=== PATIENT | male | born 1930 | race Caucasian/White ===

== ENCOUNTER 2018-07-14 08:16 | Inpatient (IN) ==
--- NOTE | 2018-07-14 08:21 | PROVIDER DOCUMENTATION ---
HPI-Neurological Disorder - General Chief Complaint: Stroke-Like Symptoms Stated Complaint: LT SIDED WEAKNESS Time Seen by Provider: 07/14/18 08:20 Source: patient Allergies/Adverse Reactions: Patient Allergies Allergy/AdvReac Type Severity Reaction Status Date / Time Cephalosporins Allergy Unknown Verified 07/14/18 09:07 levetiracetam [From Keppra] Allergy Unknown Verified 07/14/18 09:07 meropenem [From Merrem] Allergy Unknown Verified 07/14/18 09:07 Penicillins Allergy HIVES Verified 07/14/18 09:07 Home Medications: Home Medication List Medication Instructions Recorded Confirmed Last Taken Type Aspirin 81 mg PO DAILY 04/05/18 07/14/18 Unknown History Famotidine 1 tab PO QHS 04/05/18 07/14/18 Unknown History Immune Glob,Meme Caprylate(IgG) 1 dose IV DIRECTED 04/05/18 07/14/18 Unknown History [Gamunex-C] Lacosamide [Vimpat] 1 tab PO BID 04/05/18 07/14/18 Unknown History Metoprolol Tartrate 1 tab PO BID 04/05/18 07/14/18 Unknown History Potassium Chloride 1 tab PO BID 04/05/18 07/14/18 Unknown History Simvastatin 1 tab PO QHS 04/05/18 07/14/18 Unknown History Apixaban [Eliquis] 2.5 mg PO BID 07/14/18 07/14/18 Unknown History Isosorbide Mononitrate E.r. [Imdur] 30 mg PO DAILY 07/14/18 07/14/18 Unknown History Meloxicam [Mobic] 15 mg PO QAM 07/14/18 07/14/18 Unknown History Testosterone Cypionate 200 mg IM DIRECTED 07/14/18 07/14/18 Unknown History Vit C/E/Zn/Coppr/Lutein/Zeaxan 1 each PO BID 07/14/18 07/14/18 Unknown History [Preservision Areds 2 Softgel] - History of Present Illness-Neuro Nature of Presenting Problem: HPI: Pt reports to ED by EMS for slurred speech and weakness / shaking. He has a PMH of seizures, HTN, CAD s/p CABG x 3, brain sx for brain infection ( Dr Lemons) . He states that he woke up this am shaking of his bilateral extremities , and CP, left sided, comes and goes, resolved now, 10/04, He lives non rad. No vomiting, but minor nausea. He denies any one sided weakness. He lives with his at [facility]. Onset/Duration: reports: this morning Timing: reports: improving Context: reports: impaired speech. denies: head injury, recent infection, paresthesia, facial droop, falling Character of Altered Mental Status: reports: trouble concentrating. denies: disoriented, confused, combative, agitated, unresponsive, seizure activity, decreased responsiveness Any recent trauma/injury?: reports: none Character of Deficits: denies: new weakness, altered sensation, vision problem/ glaucoma, impaired speech, impaired swallowing, decreased ability to stand, decreased ability to walk, falling New weakness or altered sensation location:: reports: none Cognitive Baseline: alert, oriented x3 Gait Baseline: walks without assistance Associated Symptoms: reports: short of breath, dizziness, chest pain, nausea, slurred speech. denies: loss of consciousness, numbness in legs/feet, paresthesia, vomiting Similar Symptoms Previously?: Yes Recently seen or treated by another doctor?: Yes Review of Systems - Adult - REVIEW OF SYSTEMS - ADULT Constitutional: reports: no symptoms reported Eyes: reports: no symptoms reported Ears, Nose, Mouth & Throat: reports: no symptoms reported Cardiovascular: reports: see HPI Respiratory: reports: see HPI Gastrointestinal: reports: no symptoms reported Genitourinary: reports: no symptoms reported Musculoskeletal: reports: no symptoms reported Integumentary: reports: no symptoms reported Neurological: reports: no symptoms reported Psychiatric: reports: no symptoms reported Endocrine: reports: no symptoms reported Hematologic/Lymphatic: reports: no symptoms reported Allergic/Immunologic: reports: no symptoms reported All Other Systems: Reviewed and Negative Past History - Adult - PAST MEDICAL HISTORY-ADULT Review of Records: reports: Old Records Reviewed, Nursing Assessment Review, Medications Reviewed, Social history reviewed & non-contributory. Major Childhood Illnesses: reports: denies history Cardiovascular: reports: cardiac disease, CAD, HTN, TN, pacemaker Respiratory: reports: denies history Gastrointestinal: reports: denies history Obstetrical/Gynecological: reports: denies history Genitourinary: reports: denies history Musculoskeletal: reports: denies history Neurological: reports: Seizures/Epilepsy Endocrine/Immune: reports: denies history Other Conditions: reports: denies history - PRIOR SURGERIES/PROCEDURES Surgical/Procedure History: reports: pacemaker - IMMUNIZATION STATUS Childhood Immunizations: See Nurse Assessment Flu Vaccine: See Nurse Assessment - FAMILY HISTORY Family History: reviewed, not pertinent Physical Exam- Neurological - Physical Exam-Neuro Initial Vital Signs Reviewed: Yes General Appearance: appears well, alert, no apparent distress Eye Exam: bilateral eye: normal inspection, PERRL, EOMI HENMT: moist mucous membranes, normal ENT inspection Head Injury: no evidence of injury Neck: full range of motion Respiratory: chest non-tender, lungs clear, normal breath sounds, no pleuratic chest pain. negative: crackles, rales, rhonchi, stridor, wheezing Cardiovascular: normal peripheral pulses, regular rate, rhythm, no edema Abdominal Exam: normal bowel sounds, non tender, soft. 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 negative: abnormal eye position, abnormal gag reflex, abnormal pupil position, abnormal speech, facial asymmetry, facial droop , facial paresthesias, facial weakness, gaze palsy, hearing deficit (R), hearing deficit (L), tongue deviation to R, tongue deviation to L Coordination/Gait: normal finger to nose, normal gait, negative Romberg's sign Motor/Sensory: no motor deficit, no sensory deficit, no pronator drift. 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 Integumentary: normal color, normal turgor, warm/dry Progress - PLAN OF CARE/RESULTS Progress/Plan/Lab Results: Vital Signs - 8 hr 07/14/18 08:39 07/14/18 08:52 07/14/18 09:16 Temperature 98.6 F Pulse Rate 72 75 76 Respiratory Rate 21 14 15 Blood Pressure 192/90 192/90 203/97 O2 Sat by Pulse Oximetry 94 L 94 L 95 07/14/18 10:03 07/14/18 10:30 Temperature Pulse Rate 74 81 Respiratory Rate 22 24 Blood Pressure 198/96 179/107 O2 Sat by Pulse Oximetry 95 96 Laboratory Results - last 24 hr 07/14/18 07/14/18 07/14/18 09:13 09:13 09:13 WBC 7.85 RBC 4.41 L Hgb 13.8 L Hct 43.1 MCV 97.7 MCH 31.3 H MCHC 32.0 L RDW Std Deviation 13.3 Plt Count 196 MPV 10.0 Immature Gran % (Auto) 0.0 Neut % (Auto) 78.3 H Lymph % (Auto) 12.5 L [place] % (Auto) 7.8 Eos % (Auto) 1.1 Baso % (Auto) 0.3 Immature Gran # (Auto) 0.00 Neut # (Auto) 6.15 Lymph # (Auto) 0.98 L [place] # (Auto) 0.61 H Eos # (Auto) 0.09 Baso # (Auto) 0.02 Sodium 141 Potassium 4.8 Chloride 102 Carbon Dioxide 25 Anion Gap 14 BUN 17 Creatinine 1.0 Estimated GFR/1.73 m2 > 60 BUN/Creatinine Ratio 17 Glucose 100 POC Glucose Calculated Osmolality 283 Calcium 9.4 Total Bilirubin 0.72 AST 18 ALT 11 Alkaline Phosphatase 98 Troponin T < 0.010 Total Protein 6.5 Albumin 4.5 Globulin 2.0 Albumin/Globulin Ratio 2.3 Urine Source Urine Color Urine Turbidity Urine pH Ur Specific [place] Urine Protein Ur Glucose (Stick) Ur Ketones (Stick) Urine Blood Urine Nitrite Urine Bilirubin Urobilinogen Dipstick Urine Leukocytes Urine WBC (Auto) Urine RBC (Auto) U Epithel Cells (Auto) Urine Bacteria (Auto) 07/14/18 07/14/18 09:13 09:14 WBC RBC Hgb Hct MCV MCH MCHC RDW Std Deviation Plt Count MPV Immature Gran % (Auto) Neut % (Auto) Lymph % (Auto) [place] % (Auto) Eos % (Auto) Baso % (Auto) Immature Gran # (Auto) Neut # (Auto) Lymph # (Auto) [place] # (Auto) Eos # (Auto) Baso # (Auto) Sodium Potassium Chloride Carbon Dioxide Anion Gap BUN Creatinine Estimated GFR/1.73 m2 BUN/Creatinine Ratio Glucose POC Glucose 102 Calculated Osmolality Calcium Total Bilirubin AST ALT Alkaline Phosphatase Troponin T Total Protein Albumin Globulin Albumin/Globulin Ratio Urine Source CLEAN CATCH Urine Color STRAW Urine Turbidity CLEAR Urine pH 7.0 Ur Specific [place] 1.007 Urine Protein TRACE A Ur Glucose (Stick) NEGATIVE Ur Ketones (Stick) NEGATIVE Urine Blood NEGATIVE Urine Nitrite NEGATIVE Urine Bilirubin NEGATIVE Urobilinogen Dipstick NORMAL Urine Leukocytes NEGATIVE Urine WBC (Auto) <10 Urine RBC (Auto) <10 U Epithel Cells (Auto) <10 Urine Bacteria (Auto) NEGATIVE Orders Category Date Time Status Saline Loc NOW Care 07/14/18 08:53 Active CHEST-2 VIEWS [RAD] Stat Exams 07/14/18 08:[address] HEAD W/O CONTRAST [CT] Stat Exams 07/14/18 08:20 Completed CBC WITH ELECTRONIC DIFF [HEME] Stat Lab 07/14/18 09:13 Completed COMPREHENSIVE METABOLIC PANEL [CHEM] Stat Lab 07/14/18 09:13 Completed TROPONIN T Stat Lab 07/14/18 09:13 Completed URINALYSIS W/POSS RFLX CULT [URINALYSIS] Stat Lab 07/14/18 09:13 Completed Apixaban [Eliquis] Med 07/14/18 08:55 Discontinued 2.5 mg PO NOW ONE Aspirin Med 07/14/18 08:55 Discontinued 81 mg PO NOW ONE Isosorbide Mononitrate [Ismo] Med 07/14/18 08:55 Discontinued 30 mg PO NOW ONE Lacosamide [Vimpat] Med 07/14/18 08:55 Discontinued 150 mg PO NOW ONE Meloxicam [Mobic] Med 07/14/18 08:55 Discontinued 15 mg PO NOW ONE Metoprolol [Lopressor] Med 07/14/18 08:55 Discontinued 50 mg PO NOW ONE Potassium Chloride E.r. [Klor-Con] Med 07/14/18 08:55 Discontinued 20 meq PO NOW ONE EKG [EKG] Stat Ther 07/14/18 08:53 Draft A/P: Pt has possible seizure / stroke like symptoms. His labs were unremarkable , CT head neg for intracranial bleed, CXR clear, UA clear, BP elevated due to pt not taking am meds, we gave him all of his PO meds, and will DC when BP is normalized. Rec FU with Fam doctor to review testosterone replacement, to FU with neurologist to evalute medication dosage and efficacy, and to FU with ampoule filler and sealer to cont care with IgG injections. He is stable, and ready for DC home with close FU. @10:50 I was called into room because pt started having a seizure, bilateral upper and lower extremities, eye rolled back, duration 3-4 minutes, he is post ictal state of confusion, blurred vision, I gave 1 mg ativan and called hospitalist for admission. Result Diagrams: 07/14/18 09:13 07/14/18 09:13 - REASSESSMENT Reassessment #1 Time Reassessed: 09:00 Status: improving Reassessment #2 Time Reassessed: 10:00 Status: improving (pt states he is feeling better, and wants to go home.) Reassessment #3 Time Reassessed: 10:46 Status: worsening (I was called into room, and pt was actively seizing, post ictal state.) - EKG 1 Time of EKG reading by physician:: 08:45 EKG Read and Signed by:: John Powers EKG Interpretation (*Must complete 3 of following elements*): Abnormal Rate: 69 Rhythm: wide QRS [place]: left QRS: RBB GA Interval: normal ST Wave: non-specific ST changes - XRAY 1 XRAY Study: Chest ([address], [address], [place] [address] Department of Imaging Patient: ANANDA SHARP Date: #: [id number] : 1930ADM Status: REG [facility]#: [id number] Age/Sex: 88/MRoom/Bed: Loc: ED Ordering Physician: John Powers MD Family Physician: Richar Gutierrez MD Reason for Procedure: Chest pressure Signed CHEST-2 VIEWS - 07/14/2018 INDICATION: Chest pressure COMPARISON : 04/05/2018 FINDINGS: The lungs are normally expanded and clear. Heart size and mediastinal contours are normal. No pneumothorax or pleural effusion. Stable sternotomy wires. Stable left-sided dual-chamber pacemaker. IMPRESSION : No acute disease or change from prior. Electronically signed by Geoffrey Mojica 07/14/2018 9:49 AM 07/14/18 0949 Interpreting Physician: Geoffrey Mojica MD Dictated Date/Time: 07/14/18 0948 cc: John Powers MD; Richar Gutierrez MD) - CT/MRI 1 CT Study: Head Impression: Abnormal ([facility] [address], [address], [place] [address] Department of Imaging Patient: ANANDA SHARP Date: #: [id number] : 1930ADM Status: PRE ERAcct#: [id number] Age/ Sex: 88/MRoom/Bed: Loc: ED Ordering Physician: John Powers MD Family Physician: Richar Gutierrez MD Reason for Procedure: stroke like symptoms Signed EXAM: CT HEAD W/O CONTRAST INDICATION: stroke like symptoms TECHNIQUE: This exam was performed using automated exposure control, adjustment of mA or kV according to patient size, and/or use of iterative reconstruction technique. COMPARISON: 04/05/2018 FINDINGS: There is stable encephalomalacia underlying a right frontal craniotomy defect. There is patchy low attenuation in the periventricular white matter suggesting mild microangiopathy. There is no definite acute infarct given the limited sensitivity of CT versus MRI. There is no discrete intracranial mass, mass effect, or intracranial hemorrhage. Aside from the craniotomy defect. The calvaria is intact. Surrounding soft tissues are unremarkable. IMPRESSION: Stable chronic appearing changes as described. No definite acute intracranial pathology by CT. Electronically signed by Paras Marcos 07/14/2018 8:47 AM 0847 Interpreting Physician: Paras Marcos MD Dictated Date/Time: 07/14/18 0844 cc: John Powers MD; Richar Gutierrez MD) - CONSULTS/PCP/HOSPITALIST Notification #1 *Consult/PCP/Hospitalist*: Dr okineda Time Discussed: 10:48 Consult Disposition: Admit Departure - Departure Date of Disposition Decision: 07/14/18 Time of Disposition Decision: 10:24 DIAGNOSIS: Seizure-like activity Disposition: ADMITTED INPATIENT 09 Certified Medical Emergency: Emergent Condition: Fair Additional Freetext Instructions: We have examined and treated you today on an emergency basis only. This was not a substitute for, or an effort to provide, complete medical care. In most cases , you must let your doctor check you again. Tell your doctor about any new or lasting problems. We cannot recognize and treat all injuries or illnesses in one Emergency Department visit. If you had special tests, such as X-rays or CT scans, will be reviewed by radiologist and will call you if there are any new suggestions Follow up with primary care provider in 1 to 2 days if no improvement. If you do not have a primary care provider, you need to choose one as soon as possible. Take medicines as prescribed. Monitor for any side effects or adverse events from medications. If any side effect, adverse event or rash develops, or if you suspect any other adverse reaction to the medication, then discontinue the medication immediately and contact clinic /PCP or go to the nearest ER. Narcotic meds / sedative meds instruction - patent advised not to drive, operate any machinery or go into water after taking meds as it may impair mental ability to react to the situation in an appropriate manner . Continue other current medicines. Follow up with PCP within 24-48 hours, or sooner if symptoms worsen or fail to improve. Patient / guardian verbalizes understanding of treatment plan, medication, and side effects and agrees with treatment plan. Patient leaves ER in stable condition and ambulatory state. Return to ER as needed. Discharge instructions reviewed verbally and given to patient in written form. Follow up with primary care provider. Referrals and Follow-Ups: Richar Gutierrez MD [Primary Care Provider] - Call for Appoint. 1-2days (FU with PCP in 1-2 days ) Discharge Education: Seizure, Adult - Critical Care Note This patient required my direct & personal management of CC.: No Attestation - Physician/ RONALDO Attestation Patient care was provided by Advanced Practice Provider:: No The physician spent face to face time with patient:: Yes Advanced Practice Provider documentation review:: Supervising physician onsite and consulted in the evaluation and care of this patient. The physician did have a face to face encounter with the patient. - NIH Stroke Scale Level of Consciousness: 0-Alert LOC Questions (ask month and age): 0-Answers Both Correctly LOC Commands (ask to open & close eyes;make a fist, let go): 0-Obeys Both Correctly Best Gaze (horizontal eye movement): 0-Normal Visual (use finger movement, counting or visual threat): 0-No Visual Loss Facial Palsy (show teeth or raise eyebrows & close eyes tght: 0-Symmetrical Movement Motor Function-left arm: 0-Normal Motor Function-right arm: 0-Normal Motor Function-left le-Normal Motor Function-right le-Normal Limb Ataxia(clibyg-trkl-[id number], or heel to wells): 0-No Ataxia Sensory(pin prick to face,arms,trunk,legs-compare side/side): 0-No Ataxia Best Language(name item/read sentence.Ex-Down to Earth): 0-No Aphasia Dysarthria(Pt read words or say words Ex.Mama,Tip-Top,Thanks: 0-Normal Articulation Extinction and Inattention: 0-Normal Modified [place] Score Criteria: 0-no symptoms
--- NOTE | 2018-07-14 08:49 | Diag Imaging Result Doc PS360 ---
EXAM: CT HEAD W/O CONTRAST INDICATION: stroke like symptoms TECHNIQUE: This exam was performed using automated exposure control, adjustment of mA or kV according to patient size, and/or use of iterative reconstruction technique. COMPARISON: 04/05/2018 FINDINGS: There is stable encephalomalacia underlying a right frontal craniotomy defect. There is patchy low attenuation in the periventricular white matter suggesting mild microangiopathy. There is no definite acute infarct given the limited sensitivity of CT versus MRI. There is no discrete intracranial mass, mass effect, or intracranial hemorrhage. Aside from the craniotomy defect. The calvaria is intact. Surrounding soft tissues are unremarkable. IMPRESSION: Stable chronic appearing changes as described. No definite acute intracranial pathology by CT. Electronically signed by Paras Marcos 07/14/2018 8:47 AM
[2018-07-14] MEDS ORDERED: MOBIC PO ONE (08:55)
[2018-07-14] MEDS ORDERED: LOPRESSOR PO ONE (08:55)
[2018-07-14] MEDS ORDERED: ASPIRIN PO ONE (08:55)
[2018-07-14] MEDS ORDERED: VIMPAT PO ONE (08:55)
[2018-07-14] MEDS ORDERED: ISMO PO ONE (08:55)
[2018-07-14] MEDS ORDERED: ELIQUIS PO ONE (08:55)
[2018-07-14] MEDS ORDERED: KLOR-CON PO ONE (08:55)
--- NOTE | 2018-07-14 09:00 | EKG Report ---
Test Performed on : 07/14/2018 08:41:10 AM Test Reason : CP Blood Pressure : / mmHG Vent. Rate : 069 BPM Atrial Rate : 070 BPM P-R Int : 000 ms QRS Dur : 148 ms QT Int : 440 ms P-R-T Axes : 000 -55 -51 degrees QTc Int : 471 ms Wide QRS rhythm. Left axis deviation Right bundle branch block Septal infarct , age undetermined T wave abnormality, consider inferolateral ischemia Abnormal ECG When compared with ECG of 14-JUL-2018 08:40, (Unconfirmed) Previous ECG has undetermined rhythm, needs review Unconfirmed Result
[2018-07-14 09:40] LABS: URINE SOURCE CLEAN CATCH
--- NOTE | 2018-07-14 09:51 | Diag Imaging Result Doc PS360 ---
CHEST-2 VIEWS - 07/14/2018 INDICATION: Chest pressure COMPARISON: 04/05/2018 FINDINGS: The lungs are normally expanded and clear. Heart size and mediastinal contours are normal. No pneumothorax or pleural effusion. Stable sternotomy wires. Stable left-sided dual-chamber pacemaker. IMPRESSION: No acute disease or change from prior. Electronically signed by Geoffrey Mojica 07/14/2018 9:49 AM
[2018-07-14 09:52] LABS: BASO# 0.02 X1000 (0.0-0.2); BASO% 0.3 % (0.0-0.8); EOS# 0.09 X1000 (0.0-0.7); EOS% 1.1 % (0.0-10.0); HEMATOCRIT 43.1 % (42.0-52.0); HEMOGLOBIN 13.8 g/dL (14.0-18.0); LYMPH# 0.98 X1000 (1.2-3.4); LYMPH% 12.5 % (20.5-51.1); MCH 31.3 PG (27-31); MCV 97.7 FL (81-99); MONO# 0.61 X1000 (0.11-0.59); MONO% 7.8 % (1.7-9.3); NEUT# 6.15 X1000 (1.4-6.5); NEUT% 78.3 % (42.2-75.2); PLT 196 X1000 (130-400); RBC 4.41 XMIL (4.7-6.1); RDW 13.3 % (11.5-14.5); WBC 7.85 X1000 (4.8-10.8)
[2018-07-14 09:56] LABS: BILIRUBIN URINE NEGATIVE (NEGATIVE); BLOOD URINE NEGATIVE (NEGATIVE); COLOR STRAW; GLUCOSE URINE NEGATIVE (NEGATIVE); KETONE URINE NEGATIVE (NEGATIVE); LEUKOCYTES URINE NEGATIVE (NEGATIVE); NITRITE URINE NEGATIVE (NEGATIVE); PROTEIN URINE TRACE mg/dL (NEGATIVE); TURBIDITY URINE CLEAR (CLEAR); UROBILINOGEN URINE NORMAL (NORMAL)
[2018-07-14 09:57] LABS: UR EPITHELIAL CELLS <10 /HPF (<10); URINE BACTERIA NEGATIVE /HPF; URINE RBC <10 /HPF (<10); URINE WBC <10 /HPF (<10)
[2018-07-14 10:14] LABS: SP GRAVITY URINE 1.007
[2018-07-14 10:16] LABS: AGAP 14; ALB/GLOB RATIO 2.3; ALBUMIN 4.5 g/dL (3.5-5.0); ALKALINE PHOSPHATASE 98 U/L (32-122); BUN 17 mg/dL (8-22); CALCIUM 9.4 mg/dL (8.8-10.2); CHLORIDE 102 mmol/L (98-107); COSMO 283; ESTIMATED GFR > 60; GLUCOSE 100 mg/dL (70-104); GOT 18 U/L (10-34); GPT 11 U/L (10-44); POTASSIUM 4.8 mmol/L (3.5-5.1); SODIUM 141 mmol/L (136-145); TCO2 25 mmol/L (25-35); TOTAL BILIRUBIN 0.72 mg/dL (0.20-1.00); TOTAL PROTEIN 6.5 g/dL (6.3-8.3)
[2018-07-14] MEDS ORDERED: ATIVAN ONE (10:43)
[2018-07-14] MEDS ORDERED: ATIVAN IV ONE (10:52)
[2018-07-14] MEDS ORDERED: APRESOLINE IV PRN (13:30)
[2018-07-14] MEDS ORDERED: SODIUM CHLORIDE 0.9% INJ SCH (13:30)
[2018-07-14] MEDS ORDERED: ZOFRAN IV PRN (13:30)
--- NOTE | 2018-07-14 14:43 | ECHO REPORT ---
ORDER DATE: 07/14/2018 ECHOCARDIOGRAPHIC MEASUREMENTS: 1. Interventricular septum 1.5 2. Left ventricular posterior wall 1.7. 3. Diastolic diameter 3.7. 4. Left atrium 4.2. 5. Aorta 3.9. INTERPRETATION: 1. Technically suboptimal study. There is moderate to severe biatrial enlargement. 2. Pacing leads are noted in the right chamber. 3. Aortic valve leaflets are calcified, trileaflet, opening normally. 4. Mitral valve was normal. There is mild mitral annular calcification. 5. Tricuspid valve was normal. 6. There is no aortic stenosis. There is aortic sclerosis. There is mild aortic regurgitation. 7. There is mild mitral regurgitation. 8. Normal left ventricular cavity size. Concentric left ventricular hypertrophy. Estimated ejection fraction of 55%. There is diastolic dysfunction. 9. Moderate tricuspid regurgitation. Peak velocity across the tricuspid valve was 2.5 m/sec. 10. Pulmonary artery systolic pressure 35 to 40 mmHg. 11. There is no pericardial effusion or obvious intracardiac mass or thrombus seen. cc: Boo Ko MD
[2018-07-14] MEDS: NS 1,000 ML IV SCH (15:21)
--- NOTE | 2018-07-14 15:28 | HISTORY AND PHYSICAL ---
PRIMARY CARE PROVIDER: Dr. Richar Gutierrez. NEUROLOGIST: Dr. Neil Lowe. BLUNGER: Dr. Barahona in [facility]. CHIEF COMPLAINT: Seizures. HISTORY OF PRESENT ILLNESS: Mr. 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 They called it an encapsulated staph infection. He went to [facility] where they did a debridement in 2015. Since that time, he has had seizures and has been on Vimpat. Prostate cancer with radiation, hypertension, CABG in 2006, atrial fibrillation, status post pacemaker. They believe that the abscess in his brain stemmed from a lung abscess. Per the , over the last few years the only "big seizures" he had were in December and March 2018. She stated on this past Tuesday, he had 2 episodes, one at 4 in the afternoon and one at 9 p.m. with slight shaking. He was unable to swallow, difficulty speaking. His mouth rohini up. He was not taken to the ED at that time. She states she has taken him to the ED several times before with these episodes, and he was either diagnosed with seizure disorder or TIA, but he recovered after 15 to 20 minutes each time. However, this morning around 7:15, he got up to go to the bathroom and came back to bed. She states that is not normal for him. He usually gets up and starts his day, and will awaken her to let her know that he is getting up. She said she thought it was odd that he laid back down, but did not think much of it and then he started flailing in the bed. She states it lasted 15, maybe a little bit more. She called 911 right away. He was still seizing when EMS arrived. When he came around, he was pointing to his heart and when he got to the ED, all lab workup was essentially unremarkable. The ED physician was about to discharge him home. Per the , he started having some right eye twitching. She went to go get the nurse, and when they came back he was in a full-blown seizure. He is now in a postictal state. He was given his home medications p.o. this a.m. here in the hospital. He was given IV Ativan that broke the seizure. Head CT was negative. Unable to do an MRI secondary to him having a pacemaker. Chest x-ray was negative. EKG showed wide QRS rhythm with left axis deviation and right bundle branch block at 69 beats per minute. He was on the hypertensive side upon arrival. His blood pressure is down to the 160s. Per the , he has not really had any complaints prior to having the seizure. No shortness of breath. No chest pain. No nausea, vomiting, diarrhea. No coughing. PAST MEDICAL HISTORY: 1. Lung abscess that was treated by Dr. Avalos. I did try to pull up his old past medical records. There was no data found. I believe that the brain abscess came from the lungs. It was an encapsulated staph infection that he had debridement for at [facility] . 2. CABG in 2006. 3. Pacemaker I believe in 2009. 4. Hypertension. 5. Atrial fibrillation. 6. Seizures secondary to the brain abscess. 7. Prostate cancer with radiation in 2004 PAST SURGICAL HISTORY: 1. Debridement of the abscess in the brain. 2. CABG in 2006. FAMILY HISTORY: Patient is , has a supportive daughter at the bedside, as well as his . No alcohol, tobacco, or illicit drug use. FAMILY HISTORY: Noncontributory. ALLERGIES: 1. Cephalosporin. 2. Keppra. 3. Merrem. 4. Penicillin. HOME MEDICATIONS: 1. Eliquis 2.5 mg p.o. b.i.d. 2. Aspirin 81 mg p.o. daily. 3. Pepcid 1 tab p.o. at bedtime. 4. Gamunex-C one dose intravenous as directed. 5. Imdur 30 mg p.o. daily. 6. Vimpat 1 tab p.o. b.i.d. ' 7. Mobic 15 mg p.o. q.a.m. 8. Metoprolol 1 tab p.o. b.i.d. 9. Potassium chloride 1 tab p.o. b.i.d. 10. Simvastatin 1 tab p.o. at bedtime. 11. Testosterone Cypionate 200 mg IM as directed. 12. PreserVision AREDS 2 soft gels one each p.o. b.i.d. PHYSICAL EXAMINATION: VITAL SIGNS: Temperature 98.6 degrees, heart rate 81, respirations 24, blood pressure 179/107, O2 is 96% on 2 L nasal cannula. GENERAL: Mr. Aragon is an 88-year-old male who is lying on the stretcher in a postictal state, in no acute distress. He does easily awakens, but then falls back asleep. HEENT: Atraumatic, normocephalic. TOD. He does have some oozing from his inside bottom lip where he bit it during this seizure. NECK: Neck is supple. Trachea midline. CV: S1, S2 appreciated. No murmurs, gallops, or rubs noted. RESPIRATORY: Lung sounds clear. CHEST: Nonlabored breathing GI is soft, nontender, nondistended. Positive bowel sounds 4 quadrants. EXTREMITIES: Negative for edema. Bilateral pedal pulses are palpable. NEURO: The patient is in a postictal state. He will briefly awaken and then fall back asleep. He did answer all questions appropriately. He followed commands. Export Coordinator strength 4/5 bilaterally. Lower extremity strength 4/5 bilaterally and symmetrical smile. Tongue midline. DIAGNOSTIC DATA: 1. Head CT with stable chronic appearing changes. No definite acute intracranial pathology, just craniotomy defect. 2. Chest x-ray: No acute distress. 3. EKG showed wide QRS rhythm, left axis deviation, right bundle branch block at a rate of 69 beats per minute. LABORATORY DATA: White count 7, hemoglobin and hematocrit 13 and 43, platelet count 196. Chemistry: Sodium 141, potassium 4.8, BUN 17, creatinine 1.0 blood glucose is 1 to 100. Troponin less than 0.010. Urine is negative for bacteria, negative for nitrates. ASSESSMENT AND PLAN: 1. 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 with a witnessed seizure in the Emergency Department. The patient has beengiven his p.o. Vimpat and then IV Ativan to break the active seizure. He is now postictal. We will place him in ICU. Check an EEG. Notify Neurology. Continue seizure precautions. We are unable to check a brain MRI secondary to the patient having a pacemaker. We will continue with IV Vimpat and breakthrough Ativan for seizures while the patient is still postictal. Frequent neuro checks. 2. Reported chest pain from the . Cardiac enzymes are negative. We will continue to trend. We will check an echocardiogram. Consult Cardiology. If he becomes positive , we will continue on his home medications when he is more awake. 3. Known coronary artery disease, status post CABG. 4. Atrial fibrillation on Eliquis and metoprolol. We will do IV metoprolol. We will initiate his Eliquis when he is more awake and able to take oral. 5. Hypertension. We have added intravenous Apresoline. 6. History of abscess to the lung and brain. 7. Prostate cancer status post radiation. 8. Further recommendation to follow physician evaluation, laboratory and diagnostic data. Dictated by CAMACHO Leong for Haseeb Coates MD cc: MD Neil Mcwilliams III, MD Richar Gutierrez MD [facility] CENTERGabriele
[2018-07-14] MEDS: PROTONIX IV SCH (18:53)
[2018-07-14] MEDS ORDERED: VIMPAT IV SCH (21:00)
[2018-07-14] MEDS: VIMPAT IV SCH (22:32)
[2018-07-14] MEDS: NS IV SCH (22:32)
[2018-07-14] MEDS: LOPRESSOR IV SCH (22:33)
[2018-07-15] MEDS: NS 1,000 ML IV SCH (04:53)
[2018-07-15] MEDS: PROTONIX IV SCH (04:53)
[2018-07-15 05:26] LABS: BASO# 0.02 X1000 (0.0-0.2); BASO% 0.3 % (0.0-0.8); EOS% 1.4 % (0.0-10.0); HEMATOCRIT 38.7 % (42.0-52.0); HEMOGLOBIN 12.6 g/dL (14.0-18.0); LYMPH# 1.03 X1000 (1.2-3.4); LYMPH% 14.5 % (20.5-51.1); MCH 31.7 PG (27-31); MCHC 32.6 g/dL (33-37); MCV 97.5 FL (81-99); MONO# 0.86 X1000 (0.11-0.59); MONO% 12.1 % (1.7-9.3); MPV 9.8 FL (7.4-10.4); NEUT# 5.11 X1000 (1.4-6.5); NEUT% 71.7 % (42.2-75.2); PLT 171 X1000 (130-400); RBC 3.97 XMIL (4.7-6.1); RDW 13.1 % (11.5-14.5); WBC 7.12 X1000 (4.8-10.8)
[2018-07-15 05:48] LABS: AGAP 13; ALB/GLOB RATIO 1.8; ALBUMIN 3.7 g/dL (3.5-5.0); ALKALINE PHOSPHATASE 81 U/L (32-122); BUN 17 mg/dL (8-22); CALCIUM 8.3 mg/dL (8.8-10.2); CHLORIDE 104 mmol/L (98-107); COSMO 277; ESTIMATED GFR > 60; GLUCOSE 87 mg/dL (70-104); GOT 14 U/L (10-34); GPT 8 U/L (10-44); MAGNESIUM 1.8 mg/dL (1.5-2.7); SODIUM 138 mmol/L (136-145); TCO2 21 mmol/L (25-35); TOTAL BILIRUBIN 1.13 mg/dL (0.20-1.00); TOTAL PROTEIN 5.8 g/dL (6.3-8.3)
[2018-07-15 06:03] LABS: TSH 2.35 uIUmL (0.27-4.20)
[2018-07-15] MEDS: LOPRESSOR IV SCH ×2 (08:06→20:40)
--- NOTE | 2018-07-15 08:08 | Diag Imaging Result Doc PS360 ---
EXAM: CHEST-PORTABLE INDICATION: follow up TECHNIQUE: One view COMPARISON: 07/14/2018 FINDINGS: The lungs remain grossly clear. No new consolidations are identified. Cardiac silhouette is stable. IMPRESSION: Stable chest. Electronically signed by Paras Marcos 07/15/2018 8:05 AM
[2018-07-15] MEDS ORDERED: BLISTEX MEDICATED BERRY LIP BALM TOP PRN (08:09)
[2018-07-15] MEDS: NS IV SCH (08:22)
[2018-07-15] MEDS: VIMPAT IV SCH (08:22)
[2018-07-15] MEDS ORDERED: IMMUNE GLOB GAM CAPRYLATE IV SCH (10:45)
[2018-07-15] MEDS ORDERED: DEPO-TESTOSTERONE IM SCH (10:45)
[2018-07-15] MEDS: ATIVAN IV PRN (12:06)
--- NOTE | 2018-07-15 13:05 | PROGRESS NOTE ---
DATE: 07/15/2018 SUBJECTIVE: This morning Mr. Aragon referred to be doing a lot better has not had any more seizure episodes. OBJECTIVE: Vitals: Blood pressure is 164/97, pulse is 72, respiration is 22, temperature 97.6 degrees. General: Mr. Aragon is an 88-year-old very nice gentleman he is in bed. The and the daughter were at the bedside at the time of the encounter. HEENT: Mucosa is pink and moist. Anicteric. Acyanotic. Neck: Supple. Chest: Good air entry bilateral, there is no crepitations, no rhonchi. Cardiovascular: Regular rate and rhythm. No murmurs, no rubs, no gallops. Abdomen: Soft, nontender. Bowel sounds present. Extremities: No pedal edema. MISSILE AND MISSILE CHECKOUT TECHNICIAN: Patient is awake, alert, oriented, follows basic commands. No focal neurological deficit. There is a pacemaker on the left anterior chest wall. LABORATORY DATA: WBC is 7.12, hemoglobin is 12.6, platelet count of 171,000. Chemistry is also reviewed unremarkable. CURRENT MEDICATIONS: Have also been reviewed. ASSESSMENT: 1. Breakthrough seizures. Patient is known to have seizure disorder subsequent to a brain abscess which was removed in 2015. I understand that he has been fairly stable follows up with Dr. Lowe however since November 2017, he seems to be having more frequent breakthrough seizures than previously. The patient has recently been started on testosterone shot because of severe testosterone insufficiency and I am not sure if this is causing Vimpat to be metabolized more rapidly and causing levels to be lower and increasing the seizure threshold. I have withheld the testosterone shot. We are going to check on the levels of Vimpat. I will get an EEG and get Dr. Lowe to see the patient on Tuesday. Unfortunately Mr. Aragon has a pacemaker so he cannot do an MRI of the brain. Today he has been 24 hours seizure-free. We are going to move him from the ICU to regular floor with one-to-one observation and seizure precautions. 2. History of atrial fibrillation status post pacemaker noted. The patient has been started back on his metoprolol. 3. Hypertension uncontrolled. Patient has been restarted back on his p.o. medications. 4. History of brain abscess in the past status post craniotomy. A CT scan shows stable encephalomalacia underlying the right frontal craniotomy defect. 5. Testosterone insufficiency. Patient has been started on testosterone shot. So in general Mr. Aragon is fairly stable has not had any seizures over 24 hour period, we are going to transfer him from the ICU to regular floor. Will start him on healthy heart diet today, will also do an EEG on Tuesday and get Neurology to see him. Testosterone shot has been put on hold and will get the Vimpat level. This plan has been explained in details to the patient and the and the daughter who were at the bedside. All the questions and concerns have been addressed. cc: Jose F Kruger MD MTDD
[2018-07-15] MEDS: PEPCID PO SCH (21:09)
[2018-07-15] MEDS: LOPRESSOR PO SCH (21:09)
[2018-07-15] MEDS: VIMPAT PO SCH (21:10)
[2018-07-15] MEDS: ELIQUIS PO SCH (21:10)
[2018-07-15] MEDS: KLOR-CON PO SCH (21:10)
[2018-07-15] MEDS: ZOCOR PO SCH (21:10)
[2018-07-15] MEDS: PATIENT'S OWN MED PO SCH (21:26)
[2018-07-16] MEDS: LOPRESSOR PO SCH ×2 (09:16→20:24)
[2018-07-16] MEDS: IMDUR PO SCH (09:16)
[2018-07-16] MEDS: ELIQUIS PO SCH ×3 (09:16→22:23)
[2018-07-16] MEDS: ASPIRIN PO SCH (09:17)
[2018-07-16] MEDS: KLOR-CON PO SCH ×3 (09:17→22:23)
[2018-07-16] MEDS: VIMPAT PO SCH ×2 (09:20→20:24)
[2018-07-16] MEDS: PATIENT'S OWN MED PO SCH ×2 (09:21→20:20)
[2018-07-16] MEDS: LOPRESSOR IV SCH ×2 (09:21→20:22)
--- NOTE | 2018-07-16 10:01 | PROGRESS NOTE ---
DATE: 07/16/2018 SUBJECTIVE: This morning, Mr. Aragon refers to be doing a lot better. He has not had any more seizure activity. He was having his breakfast at the time of the encounter. OBJECTIVE: Vital signs: Blood pressure is 170/100, pulse is 75, respiration is 71, temperature is 97.1 degrees. The patient was saturating 97% on room air. General: Mr. Aragon is an 88- year-old male. He is in bed. He is not in any cardiopulmonary distress. HEENT: Mucosa is pink and moist. Anicteric and acyanotic. Neck: Supple. Chest: Good air entry bilaterally, did not hear any crepitations. No rhonchi. Cardiovascular: Regular rate and rhythm. There is a pronounced A2 sound. Abdomen: Soft, nontender. Bowel sounds present. Extremities: No pedal edema. FOOD STAND MANAGER: Patient is awake, alert, and oriented. Musculoskeletal: There is an old sternotomy scar on the anterior chest wall. There is also a pacemaker pocket on the left anterior chest wall. LABORATORY DATA: There is no lab work for this morning. No imaging studies today. CURRENT MEDICATIONS: 1. Eliquis 2.5 b.i.d. 2. Aspirin 81 mg daily. 3. Famotidine 40 mg at bedtime. 4. Imdur 30 mg daily. 5. Vimpat 150 b.i.d. 6. Lopressor 50 mg b.i.d. ASSESSMENT: 1. Breakthrough seizures. The patient has been observed over 48 hours. No more seizures. We are pending Neurology consult and final recommendations and hopefully can get Mr. Aragon tomorrow. 2. History of atrial fibrillation currently rate controlled. Patient is status post pacemaker. He is on metoprolol for rate control and Eliquis for DVT prophylaxis. 3. Uncontrolled hypertension. The patient has been started on losartan this morning. 4. History of brain abscess in the past, status post craniotomy. A CT scan shows stable encephalomalacia underlying the right frontal craniotomy. 5. Testosterone insufficiency. The patient was started on testosterone injections about 2 days prior to this current admission. It is very possible that this medication could have induced accelerated metabolism of the Vimpat causing the levels to be low and inducing the seizures. The testosterone shot has been put on hold. PLAN: So in general, I think Mr. Aragon is doing a lot better. He has not had any seizures in 48 hours. He is pending Neurology evaluation. I think he will be okay moving to the medical floor if we need a bed in the ICU. I do not think he needs any more of the one-to-one observation, especially if there will be a family member at the bedside. The patient will need to be on the seizure precautions. cc: Jose F Kruger MD
[2018-07-16] MEDS: ATIVAN IV PRN (18:35)
[2018-07-16] MEDS: ZOCOR PO SCH ×2 (20:24→22:24)
[2018-07-16] MEDS: PEPCID PO SCH ×2 (20:24→22:24)
--- NOTE | 2018-07-17 07:10 | EKG Report ---
Test Performed on : 07/15/2018 06:36:03 AM Test Reason : chest pain Blood Pressure : / mmHG Vent. Rate : 076 BPM Atrial Rate : 076 BPM P-R Int : 276 ms QRS Dur : 194 ms QT Int : 492 ms P-R-T Axes : 081 -87 095 degrees QTc Int : 553 ms Atrial-sensed ventricular-paced rhythm with prolonged AV conduction Abnormal ECG When compared with ECG of 14-JUL-2018 08:41, (Unconfirmed) Electronic ventricular pacemaker has replaced Wide QRS rhythm. Confirmed by Jose DALTON, David Sales ([id number]) on 07/17/2018 11:19:22 AM
[2018-07-17] MEDS: PATIENT'S OWN MED PO SCH (09:17)
[2018-07-17] MEDS: IMDUR PO SCH (10:03)
[2018-07-17] MEDS: VIMPAT PO SCH (10:03)
[2018-07-17] MEDS: LOPRESSOR IV SCH (10:03)
[2018-07-17] MEDS: ELIQUIS PO SCH (10:03)
[2018-07-17] MEDS: ASPIRIN PO SCH (10:03)
[2018-07-17] MEDS: LOPRESSOR PO SCH (10:03)
[2018-07-17] MEDS: KLOR-CON PO SCH (10:05)
--- NOTE | 2018-07-17 14:22 | CONSULTATION ---
DATE OF CONSULTATION: 07/17/2018 REASON FOR CONSULTATION: Seizure. HISTORY OF PRESENT ILLNESS: This is an 88-year-old, ambidextrous, male, who was hospitalized on Tuesday with seizures. History is from the patient and his attentive . On Tuesday, the patient had two of the smaller type events. On Tuesday asparagus buncher, he woke up and went to the restroom and instead of getting ready for the day he came back and got into bed which was unusual. He subsequently had a grand mal-type seizure with generalized shaking. is unsure of the duration, but thought maybe 10 minutes long. He was no longer violently shaking when EMS arrived, but he was not completely motionless either. There was no incontinence. He did bite the inside of his mouth. In the emergency department, he had a second witnessed seizure again with generalized shaking. His eyes were rolled back. The duration was 3-4 minutes. He was postictal afterwards. states that before his second seizure that occurred in the emergency department she and other family noticed repetitive right eye closure just before the onset of the generalized shaking. Patient was unaware of this but was able to answer questions appropriately at that time. She also mentioned him having periods of the repetitive eye closure plus/minus some mild right arm shakiness following the seizure witnessed in the ED. There are two event types: 1. Event One: "Smaller events." Sudden onset of tingling involving the left side of his throat with copious drooling and inability to swallow as well as inability to speak. He seems slow mentally during the events, but is able to stand and has walked around, and tried to tend to the copious secretions during event. Duration 3-4 minutes. He is tired afterwards. Last ones occurred on Tuesday last week. Prior to that he had one in March 2018. 2. Event Two: "Full blown events." Patient has violent shaking all over and he is unresponsive. No incontinence. Plus/minus oral injury. Duration not certain. reports one episode may be 10 minutes. ER documented one episode 3-4 minutes. He is postictal afterwards. Last event he had two Tuesday, which was 3-days-ago. Prior to that he had one in December 2017. He never had a history of seizures or seizure-like events before presenting with focal motor seizure involving the left limbs in 2016. At that time, there was a right hemisphere lucency and surgical management for abscess. In terms of antiepileptic medications, he currently takes lacosamide 150 mg p.o. b.i.d. and tolerates that. He had been on levetiracetam which was helpful for seizures, but he developed a skin rash. He may have taken lamotrigine briefly and did not tolerate that. Lacosamide level was sent off this admission and is pending. LCM level in March after event was in the high therapeutic range. He denies other neurologic symptoms. PAST MEDICAL HISTORY: 1. Right frontal lobe brain abscess 2016 status post surgical management with Dr. Lemons in [place]. 2. Focal motor seizures presumed symptomatic as in #1 above. 3. Hypertension. 4. Hyperlipidemia. 5. Coronary disease with CABG. 6. Pacemaker. 7. Prostate cancer. FAMILY HISTORY: No seizures. SOCIAL HISTORY: He is . Lives with his . No tobacco, alcohol or illicit. He does not drive. ALLERGIES: Levetiracetam, penicillin, cephalosporins, hydralazine, meropenem. REVIEW OF SYSTEMS: Balance of 12 conducted and otherwise negative except that detailed in the HPI. He had some chest pain earlier on, not now. PHYSICAL EXAM: VITAL SIGNS: He is afebrile. Blood pressure 192/90 on admission, currently 159 /76. Pulse 70, respirations 14, 98% on room air. GENERAL: Mr. Aragon is supine in bed with head of bed elevated. He is awake, alert. He was on the phone when I entered the room. He is having a normal-sounding conversation. He is oriented. No language disturbance on bedside testing. No dysarthria. HEENT: Pupils are equal, round, reactive to light. Gaze conjugate forward. Extraocular movements are full. Face symmetric with equal activation. Visual kirby intact to direct confrontational testing. Tongue is midline. Palate elevates symmetrically. Shoulder shrug is full. No dressed. Strength is preserved in the arms and legs. Sensation is symmetric to light touch and temperature in the arms and legs. [id number] and rapid alternating movements intact. Reflexes trace wrist and biceps bilaterally. Possibly slightly increased on the left compared to the right. One-plus patellar, absent ankle jerks. No clonus. Plantar responses downgoing. I did not test his gait. PERTINENT DATA: Normal sodium, BUN, creatinine, blood sugar. Calcium 8.3. IMAGING: Head CT noncontrast personally reviewed showing stable chronic changes with stable encephalomalacia underlying a right frontal craniotomy defect. No definite acute pathology. REEG [id number]/3015- showed right frontal slowing with EDs. ASSESSMENT AND PLAN: An 88-year-old male with history of focal seizures presumed symptomatic of right frontal lobe abscess in 2016 that was managed surgically. He presents with two witnessed generalized seizures. This time there is report by and family of repetitive right eye closing and possible right arm shaking before the event that was witnessed in the emergency department. It would seem unusual and less likely, but if recall was accurate then this raises the question of the possibility of new focus of seizure onset. I would like to obtain a repeat head CT at this time with contrast for a more detailed look. He cannot have MRI. EEG was ordered previously and I will look at that once it is obtained. We will probably need to either increase his Vimpat dosage or add a second agent. I also recommend that his pacemaker be interrogated. Seizure precautions were advised to the patient and he understands the laws of [place] regarding driving. Thank you for the consultation. ADDENDUM: EEG personally reviewed. Showed intermittent, predominantly right frontal focal slowing. No EDs. No sz. He has not had recurrent seizure since admission 3 days ago. LCM level still pending. Given apparent adverse events with LEV and LTG in the past, as well as previous high therapeutic LCM level in March, I'd recommend starting oxcarbazepine 300mg po bid now. That can be titrated up as outpatient. Lacosamide may need to be reduced but that can be done as outpatient. He should call our office to schedule followup or if complications arise. cc: Niki Clarke MD [facility]ENTERGabriele
--- NOTE | 2018-07-17 15:22 | Diag Imaging Result Doc PS360 ---
CT HEAD W/CONTRAST - 07/17/2018 INDICATION: seizures, ? new left focal onset TECHNIQUE: COMPARISON: 07/14/2018 FINDINGS: Stable right frontal craniotomy change. Stable underlying resection cavity. No intracranial mass or hemorrhage. Stable mild diffuse atrophy. The sinuses are clear. IMPRESSION: No acute disease or change from prior. This exam was performed using automated exposure control, adjustment of mA or kV according to patient size, and/or use of iterative reconstruction technique Electronically signed by Geoffrey Mojica 07/17/2018 3:20 PM
--- NOTE | 2018-07-17 15:46 | EEG REPORT ---
DATE: 07/17/2018 REFERRING PHYSICIAN: CAMACHO Leong COACH: Tamara Crain. BACKGROUND INFORMATION AND TECHNIQUE: This is a digitally recorded routine EEG with video. HISTORY: This is an 88-year-old male patient with history of right frontal lobe abscess, status post surgical management in 2016. At the time of diagnosis, he presented with new onset seizure. Since treatment he has intermittently had periods of sudden onset inability to speak with copious drooling and inability to swallow, lasting a few minutes before resolution with some tiredness afterwards. This is associated with left-sided throat tingling, he says. Additionally, he has had a few generalized tonic clonic appearing seizures that have been witnessed. EEG is ordered to detect evidence of seizures. EEG FINDINGS: A brief 8.5 hertz posterior dominant alpha rhythm is seen symmetrically in the occipital regions. At maximal alertness, the background consists of mixed alpha and beta range frequencies. Intermittent focal slowing mostly within the right frontal region is seen during the study. No epileptiform discharges. No seizures. Hyperventilation was not performed. Photic stimulation did not alter the record. The patient is drowsy often and enters into stage II sleep. EKG demonstrates regular intervals. IMPRESSION AND CLINICAL CORRELATION: Abnormal routine EEG due to focal slowing mostly within the right frontotemporal region likely consistent with patient's known encephalomalacia in this area. Clinical correlation is recommended. No epileptiform discharges and no seizures seen on the current study. This does not rule out an underlying seizure disorder. cc: Niki Clarke MD
--- NOTE | 2018-07-17 16:06 | PROGRESS NOTE ---
DATE: 07/17/2018 This morning Mr. Aragon referred to be doing fairly okay. Denies any more seizures. He has been evaluated by Neurology and we are pending their formal consult report. OBJECTIVE: Vitals: Blood pressure is 115/76, pulse is 70, respiration is 14, temperature 97.7 degrees. General: Mr. Aragon 88-year-old male he is in bed, he is not in any cardiopulmonary distress. Mucosa is pink and moist. Anicteric. Acyanotic. Neck: Supple. Chest: Good air entry bilateral. There is no crepitations no rhonchi. Cardiovascular: Regular rate and rhythm. There is a pacemaker pocket on the left anterior chest wall. Abdomen: Soft, nontender. Bowel sounds present. Cardiovascular: Regular rate and rhythm. There is a pronounced A2. LOFTSMAN/WOMAN: Patient is awake, alert, oriented. There is no focal neurological deficit. LABORATORY DATA: None for today. CURRENT MEDICATIONS: Have also been evaluated. ASSESSMENT: 1. Breakthrough seizures, patient has been 72 hours without seizures. We are pending neurology final recommendations. 2. History of atrial fibrillation. Patient is status post pacemaker. He is currently on metoprolol. Rate is controlled. He is also on Eliquis for stroke prophylaxis. 3. Uncontrolled hypertension improved. 4. History of brain abscess in the past status post craniotomy. A CT scan showed encephalomalacia under the right frontal lobe. There was a repeat CT scan this morning which shows stable right frontal craniotomy changes, no acute disease. 5. Testosterone deficiency. Patient has been started on testosterone about 2 days prior to this current admission. I wonder if the testosterone injection has anything to do with his antiseizure medications. So in general Mr. Aragon is fairly stable. Has not had any more seizures since current admission. I think once he gets evaluated by Neurology will be able to discharge him. cc: Jose F Kruger MD [facility]
[2018-07-17 16:33] VITALS: BP 124/57
[2018-07-17] MEDS ORDERED: TRILEPTAL PO SCH ×2 (21:00)
--- NOTE | 2018-07-18 06:00 | DISCHARGE SUMMARY ---
ADMISSION DATE: 07/14/2018 DISCHARGE DATE: 07/17/2018 DISPOSITION: Home. FOLLOWUP: 1. Dr. Lowe. 2. Dr. Richar Gutierrez. 3. Dr. Barahona, underwriting account representative in [place]. CONSULTATION DURING THIS ADMISSION: Neurology was consulted. Patient was seen by Dr. Clarke. ADMISSION DIAGNOSES: 1. Seizure disorder with possible breakthrough. 2. Known history of coronary artery disease, status post coronary artery bypass graft. 3. Atrial fibrillation, currently rate controlled. 4. History of prostate cancer. DIAGNOSES AT THE TIME OF DISCHARGE: 1. Breakthrough seizures. 2. History of atrial fibrillation, currently rate controlled. Patient is status post pacemaker. 3. Hypertension. 4. History of brain abscess, status post craniotomy. 5. History of coronary artery disease, status post coronary artery bypass graft. 6. Testosterone deficiency. DISCHARGE MEDICATIONS: 1. Simvastatin 40 mg daily. 2. Metoprolol 50 mg b.i.d. 3. Famotidine 40 mg daily. 4. Immunoglobulin. 5. Vimpat 150 b.i.d. 6. Aspirin 81 mg daily. 7. Apixaban 2.5 b.i.d. 8. Trileptal 150 b.i.d. PRESENTING COMPLAINT: Seizures. HISTORY OF PRESENTING COMPLAINT: Mr. Aragon is an 88-year-old male, who has a history of seizures after a brain abscess, presented to the emergency department because of ongoing recurrent seizures. The patient was evaluated and admitted because of breakthrough seizures. Upon presentation, he was evaluated. A CT scan was negative for any acute ongoing pathology. He was initially admitted to the ICU for close neurological observation. The patient was loaded with fosphenytoin and was started back on his Vimpat. During the hospital course, he did pretty well. Did not have any more seizures. Of note, the patient refers that he been started on testosterone shot for testosterone deficiency and since then, his seizures have been reoccurring more often. We are quite not sure if this testosterone being hormone is inducing hypermetabolism of the Vimpat making the levels low. In any case, during the hospital course, Mr. Aragon did not have any more seizures. He was evaluated by Dr. Clarke, and the recommendations were to add Trileptal and have him follow up with Dr. Lowe's office. An EEG was done which was unremarkable for any epileptiform discharges. Mr. Aragon has not had any more seizures for the past 72 hours, and he is stable for discharge. He will follow up with his regular underwriting account representative, Dr. Barahona, in [place]. At the time of the discharge, there is no pending labs or imaging studies. HIS VITALS: Blood pressure is 124/57, pulse is 64, respirations 16, temperature is 97.8 degrees. He is clinically stable. All the discharge instructions have been discussed with him, and he voices understanding. TIME SPENT FOR DISCHARGE: 36 minutes. cc: MD Richar Hunt MD Eston G. Norwood III, MD James Murphy, MD
== END 2018-07-17 18:24 | disposition home or self-care (01) | DRG 101 ==
LOC: SUPCPDRO → ED 08:16 → EDIPHOLD 11:26 → SUATTDRO 11:26 → MERGE 11:26 → ICU 21:12 → 3N 07-16 12:55
PROVIDERS: ATTEND Internal Medicine
CPT/HCPCS: 70450; 70460; 71010; 71020; 71045; 71046; 80053; 80299; 81001; 82542; 82550; 82607; 82746; 82948; 83735; 84443; 84484; 85025; 92610; 93005; 93010; 93306; 94761; 95816; 96374; 99285; A9270; C9113; C9254; J0360; J2060; J7030; Q9967; S0164; XXXXX

== ENCOUNTER 2018-12-22 11:20 | Inpatient (IN) ==
--- NOTE | 2018-12-22 12:32 | Diag Imaging Result Doc PS360 ---
EXAM : CT CERVICAL SPINE W/O CONTRAST HISTORY: fall TECHNIQUE: CT cervical spine without contrast COMPARISON: 09/20/2015 FINDINGS: Cervical spine: There is good alignment to the cervical spine. No precervical soft tissue swelling. No subluxation. No fracture. There is degenerative bone spurring throughout the cervical spine. Prominent atherosclerosis. IMPRESSION: Cervical spine: No acute fracture. This exam was performed using automated exposure control, adjustment of mA or kV according to patient size, and/or use of iterative reconstruction technique. Electronically signed by Nader Alvarez 12/22/2018 12:30 PM
--- NOTE | 2018-12-22 12:40 | Diag Imaging Result Doc PS360 ---
EXAM: TRAUMA SHOULDER RIGHT HISTORY: fall TECHNIQUE: Right shoulder three views including an axillary Y COMPARISON: None. FINDINGS: No fracture. No dislocation. Old healed injury to the clavicle IMPRESSION: No acute bony injury. Electronically signed by Nader Alvarez 12/22/2018 12:38 PM
--- NOTE | 2018-12-22 12:41 | Diag Imaging Result Doc PS360 ---
EXAM: TRAUMA SHOULDER LEFT HISTORY: fall TECHNIQUE: Left shoulder three views including an axillary Y COMPARISON: 03/03/2018 FINDINGS: No fracture. No dislocation. No separation at the acromioclavicular joint. There is mild acromioclavicular arthritis. IMPRESSION: No acute bony injury. Electronically signed by Nader Alvarez 12/22/2018 12:39 PM
--- NOTE | 2018-12-22 12:55 | Diag Imaging Result Doc PS360 ---
EXAM: COCCYX/SACRUM HISTORY: pain TECHNIQUE: Sacrum and coccyx, three views COMPARISON: None. FINDINGS: Prominent degenerative changes at L4-5 with bone spurring and disc space narrowing. No fracture to the sacrum or coccyx. Severe atherosclerosis. IMPRESSION: Degenerative changes in the lower lumbar spine. Electronically signed by Nader Alvarez 12/22/2018 12:52 PM
--- NOTE | 2018-12-22 14:04 | PROVIDER DOCUMENTATION ---
This chart was entered by Brittany Kaminski Scribe, acting as scribe for Fortino Oseguera MD. HPI-Neurological Disorder - General Chief Complaint: Seizure Stated Complaint: SEIZURE / FALL Time Seen by Provider: 12/22/18 12:01 Source: patient Allergies/Adverse Reactions: Patient Allergies Allergy/AdvReac Type Severity Reaction Status Date / Time Penicillins Allergy Unknown HIVES Verified 07/17/18 07:51 Cephalosporins Allergy HIVES Verified 07/17/18 07:51 hydralazine Allergy HIVES Verified 07/17/18 07:51 levetiracetam [From Keppra] Allergy HIVES Verified 07/17/18 07:51 meropenem [From Merrem] Allergy Unknown Verified 07/17/18 07:51 Home Medications: Home Medication List Medication Instructions Recorded Confirmed Last Taken Type Metoprolol [Lopressor] 50 mg PO BID 09/14/15 01/01/18 09/14/15 History Potassium Chloride [Klor-Con M20] 20 meq PO BID 09/14/15 01/01/18 09/14/15 History Simvastatin 40 mg PO DAILY 09/14/15 01/01/18 09/14/15 History Ascorbate Calcium [Vitamin C] 500 mg PO DAILY 09/20/15 01/01/18 Unknown History Famotidine 40 mg PO DAILY 01/01/18 01/01/18 Unknown History Immune Glob,Meme Caprylate(IgG) 1 gm IJ DIRECTED 01/01/18 01/01/18 Unknown History [Gamunex-C] Lacosamide [Vimpat] 150 mg PO BID 30 Days #60 tab 01/02/18 Unknown Rx Aspirin 81 mg PO DAILY 04/05/18 07/14/18 Unknown History Famotidine 1 tab PO QHS 04/05/18 07/14/18 Unknown History Immune Glob,Meme Caprylate(IgG) 1 dose IV DIRECTED 04/05/18 07/14/18 Unknown History [Gamunex-C] Lacosamide [Vimpat] 1 tab PO BID 04/05/18 07/14/18 Unknown History Metoprolol Tartrate 1 tab PO BID 04/05/18 07/14/18 Unknown History Potassium Chloride 1 tab PO BID 04/05/18 07/14/18 Unknown History Simvastatin 1 tab PO QHS 04/05/18 07/14/18 Unknown History Apixaban [Eliquis] 2.5 mg PO BID 07/14/18 07/14/18 Unknown History Isosorbide Mononitrate E.r. [Imdur] 30 mg PO DAILY 07/14/18 07/14/18 Unknown History Meloxicam [Mobic] 15 mg PO QAM 07/14/18 07/14/18 Unknown History Testosterone Cypionate 200 mg IM DIRECTED 07/14/18 07/14/18 Unknown History Vit C/E/Zn/Coppr/Lutein/Zeaxan 1 each PO BID 07/14/18 07/14/18 Unknown History [Preservision Areds 2 Softgel] Oxcarbazepine [Trileptal] 300 mg PO BID #60 tab 07/17/18 Unknown Rx - History of Present Illness-Neuro Nature of Presenting Problem: 88yom with hx of seizures c/o seizure activity, RUE pain, bilateral shoulder pain, and neck pain since this morning. The patient's daughter acts primarily as historian. The patient's daughter reports that the patient had seizure activity this morning and fell coming out of the bathroom. She reports he fell on his R side and fell in-between the wall and a dresser. She reports that the patient had slurred speech when she arrived to the patient's residence. She reports that the patient developed seizures in 2015. She reports that the patient takes Vimpat for seizures. He denies fever, chills, nausea, vomiting, diarrhea, cp, sob. The patient's and daughter are at bedside. Severity: reports: mild Onset/Duration: reports: this morning Timing: reports: still present, gone now (seizure activity), constant Context: reports: seizure activity Character of Altered Mental Status: reports: seizure activity Character of Deficits: reports: impaired speech (slurred speech according to patient's daughter upon arrival, gone now) Cognitive Baseline: alert, oriented x3 Gait Baseline: walks without assistance Associated Symptoms: reports: seizures, other (RUE pain, bilateral shoulder pain, and neck pain). denies: chest pain, fever/chills, nausea, vomiting Similar Symptoms Previously?: No Recently seen or treated by another doctor?: No Review of Systems - Adult - REVIEW OF SYSTEMS - ADULT Constitutional: denies: chills, fever Eyes: denies: discharge, dry eyes Ears, Nose, Mouth & Throat: denies: ear discharge, ear pain Cardiovascular: denies: chest pain, palpitations Respiratory: denies: cough, shortness of breath Gastrointestinal: denies: abdominal pain, diarrhea, nausea, vomiting Genitourinary: denies: dysuria, hematuria Musculoskeletal: reports: neck pain, other (RUE pain, bilateral shoulder pain) Integumentary: reports: no symptoms reported Neurological: reports: seizure. denies: dizziness/vertigo, headache/migraines Psychiatric: reports: no symptoms reported Endocrine: reports: no symptoms reported Hematologic/Lymphatic: reports: no symptoms reported Allergic/Immunologic: reports: no symptoms reported All Other Systems: Reviewed and Negative Past History - Adult - PAST MEDICAL HISTORY-ADULT Review of Records: reports: Old Records Reviewed, Nursing Assessment Review, Medications Reviewed Major Childhood Illnesses: reports: denies history Cardiovascular: reports: CAD, cardiac disease, HTN, hyperlipidemia, HI, pacemaker Respiratory: reports: denies history Gastrointestinal: reports: denies history Obstetrical/Gynecological: reports: denies history Genitourinary: reports: denies history, prostate cancer Musculoskeletal: reports: denies history Neurological: reports: denies history, Seizures/Epilepsy Endocrine/Immune: reports: denies history Other Conditions: reports: denies history - PRIOR SURGERIES/PROCEDURES Surgical/Procedure History: reports: pacemaker, CABG - PRIOR HOSPITALIZATIONS Prior Hospitalizations: reports: for similar symptoms - IMMUNIZATION STATUS Childhood Immunizations: See Nurse Assessment Flu Vaccine: See Nurse Assessment - FAMILY HISTORY Family History: reviewed, not pertinent - SOCIAL HISTORY Smoking: other (former smoker) Substance Use: alcohol Alcohol Use Frequency: occasionally Living Situation: family Physical Exam- Neurological - Physical Exam-Neuro Initial Vital Signs Reviewed: Yes General Appearance: alert, no apparent distress Eye Exam: bilateral eye: normal inspection, PERRL, EOMI HENMT: normocephalic/atraumatic, moist mucous membranes Head Injury: no evidence of injury. negative: active bleeding, Rosario's Sign, contusions, ecchymosis, lacerations Neck: C-spine tenderness Respiratory: chest non-tender, lungs clear, normal breath sounds, no pleuratic chest pain, no respiratory distress, no accessory muscle use. negative: crackles, wheezing Cardiovascular: regular rate, rhythm, no murmur. negative: bradycardia, tachycardia Abdominal Exam: non tender, soft. 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 negative: cyanosis, ecchymosis, erythema Psych/Mental Status: normal mood/affect, normal thought content, normal thought process, oriented x 3 - Glascow Coma Scale Best Eye Response: (4) open spontaneously Best Verbal Response: (5) oriented Best Motor Response: (6) obeys commands Total Glascow Score: 15 Progress - PLAN OF CARE/RESULTS Progress/Plan/Lab Results: Vital Signs - 8 hr 12/22/18 11:26 Temperature 98 F Pulse Rate 60 Respiratory Rate 18 Blood Pressure 165/79 O2 Sat by Pulse Oximetry 100 Orders Category Date Time Status COCCYX/SACRUM [RAD] Stat Exams 12/22/18 12:[address] CERVICAL SPINE W/O CONTRAST [CT] Stat Exams 12/22/18 12:03 Completed TRAUMA SHOULDER LEFT [RAD] Stat Exams 12/22/18 12:01 Completed TRAUMA SHOULDER RIGHT [RAD] Stat Exams 12/22/18 12:01 Completed - XRAY 1 XRAY Study: other (COCCYX/SACRUM) Impression: Abnormal (FINDINGS: Prominent degenerative changes at L4-5 with bone spurring and disc space narrowing. No fracture to the sacrum or coccyx. Severe atherosclerosis. IMPRESSION: Degenerative changes in the lower lumbar spine.) 2 XRAY: Right XRAY Study: Shoulder Impression: Abnormal (FINDINGS: No fracture. No dislocation. Old healed injury to the clavicle IMPRESSION: No acute bony injury.) 3 XRAY: Left Impression: Abnormal (FINDINGS: No fracture. No dislocation. No separation at the acromioclavicular joint. There is mild acromioclavicular arthritis. IMPRESSION: No acute bony injury.) - CT/MRI 1 CT Study: Cervical Spine Impression: Abnormal (FINDINGS: Cervical spine: There is good alignment to the cervical spine. No precervical soft tissue swelling. No subluxation. No fracture. There is degenerative bone spurring throughout the cervical spine. Prominent atherosclerosis. IMPRESSION: Cervical spine: No acute fracture. This exam was performed using automated exposure control, adjustment of mA or kV according to patient size, and/or use of iterative reconstruction technique. Electronically signed by Nader Alvarez 12/22/2018 12:30 PM) Departure - Departure Date of Disposition Decision: 12/22/18 Time of Disposition Decision: 14:02 DIAGNOSIS: Fall Disposition: HOME 01 Certified Medical Emergency: Emergent Condition: Stable Additional Freetext Instructions: ED Follow Up Instructions: You have been treated by a care provider in the Emergency Department. These instructions are being provided to you so you can have an understanding of how to care for yourself upon discharge. Upon discharge from the Emergency Department, you are responsible for making arrangements for follow-up care by a physician of your choice. Take all prescribed medications as directed. Return to the Emergency Department immediately for any new or worsening symptoms. You may call the Physician Referral phone number at [phone] to obtain a list of Physicians who are taking new patients. Referrals and Follow-Ups: Richar Gutierrez MD [Primary Care Provider] - Discharge Education: Fall Prevention in the Home, Adult, [id number] - Critical Care Note This patient required my direct & personal management of CC.: No Attestation - Physician/ RONALDO Attestation Patient care was provided by Advanced Practice Provider:: No The physician spent face to face time with patient:: Yes Advanced Practice Provider documentation review:: Supervising physician onsite and consulted in the evaluation and care of this patient. The physician did have a face to face encounter with the patient. This chart was documented by the indicated scribe, (Brittany Kaminski Scribe) and accurately reflects the services I performed and decisions made by me, Fortino Oseguera MD, as attested by the provider's signature.
[2018-12-22 14:24] LABS: BASO# 0.02 X1000 (0.0-0.2); BASO% 0.1 % (0.0-0.8); EOS# 0.06 X1000 (0.0-0.7); EOS% 0.4 % (0.0-10.0); HEMATOCRIT 43.2 % (42.0-52.0); HEMOGLOBIN 13.8 g/dL (14.0-18.0); IMM GRAN# 0.02 X1000 (0.0-0.04); IMM GRAN% 0.1 % (0.0-0.5); LYMPH% 14.8 % (20.5-51.1); MCH 27.7 PG (27-31); MCHC 31.9 g/dL (33-37); MCV 86.6 FL (81-99); MONO# 1.42 X1000 (0.11-0.59); MPV 9.8 FL (7.4-10.4); NEUT% 74.6 % (42.2-75.2); PLT 202 X1000 (130-400); RBC 4.99 XMIL (4.7-6.1); RDW 15.1 % (11.5-14.5); WBC 14.22 X1000 (4.8-10.8)
[2018-12-22 14:45] LABS: AGAP 14; ALBUMIN 4.1 g/dL (3.5-5.0); ALKALINE PHOSPHATASE 73 U/L (32-122); BUN 16 mg/dL (8-22); CALCIUM 9.2 mg/dL (8.8-10.2); CHLORIDE 106 mmol/L (98-107); COSMO 281; CREATININE 1.1 mg/dL (0.7-1.2); ESTIMATED GFR > 60; GLUCOSE 108 mg/dL (70-104); GOT 15 U/L (10-34); GPT 11 U/L (10-44); SODIUM 140 mmol/L (136-145); TCO2 20 mmol/L (25-35); TOTAL PROTEIN 6.4 g/dL (6.3-8.3)
[2018-12-22] MEDS ORDERED: ZOFRAN IV PRN (18:09)
--- NOTE | 2018-12-22 21:02 | HISTORY AND PHYSICAL ---
CHIEF COMPLAINT: Seizure. HISTORY OF PRESENT ILLNESS: The patient is a very pleasant 88-year-old male who presented to the ER via his family secondary to seizure this morning. The patient has had seizures in the past since he had tumor and resection a few years ago. The patient himself unfortunately is an extremely poor historian. The family notes he has been complaining of the right upper quadrant pain, bilateral shoulder and neck pain that seemed to have worsened this morning. Typically, the patient seems to have some pre warning symptoms prior to his seizure, but this morning he did not. He simply walked out of the restroom and fell to the ground having a seizure. The patient does take Vimpat for seizures and has since 2016. He did have a small seizure this morning at home as noted when he left the restroom. They called Dr. Lowe and actually increased the Vimpat from 150 to 200, but this has not started. Since the the seizure this morning, the patient has had another much longer seizure and that was the reason to come to the ER. ALLERGIES: Penicillin, cephalosporin, hydralazine, [*] causing hives, Merrem unknown reaction. MEDICATIONS: Vimpat 150 b.i.d. He has been on Imdur, simvastatin, Lopressor, aspirin, Pepcid, but I do not have an active current medication list. REVIEW OF SYSTEMS: As noted above. Denies any fevers, chills, cough, congestion. Denies any dysuria, urinary frequency, urgency, hesitancy, polyuria or polydipsia. Denies any skin rashes, weight loss or weight gain. PAST MEDICAL HISTORY: Significant for coronary artery disease, hypertension, hyperlipidemia, history of [place], pacemaker placement, history of seizures and epilepsy. He had a pacemaker, a CABG in the past, history of prostate cancer. He has had evacuation of a tumor on his brain several years ago. FAMILY HISTORY: Noncontributory. SOCIAL HISTORY: Patient is a former smoker. He no longer smokes. Does not drink or use illicit substances. Lives at home. He is and cared for by his and his daughter. PHYSICAL EXAMINATION: VITAL SIGNS: Temp 98, pulse 60, respiratory 18, BP 165/79. GENERAL: Patient currently is awake, alert. He appears relatively oriented. He understands what happened this morning. Apparently, when he arrived to the ER initially had he slurred speech and was sluggish, but this certainly would have been postictal. HEENT: Normocephalic. NECK: Supple. CARDIOVASCULAR: Regular rate. No murmurs currently. CHEST: Clear, nonlabored. No wheezing. ABDOMEN: Soft, nondistended, nontender. Positive bowel sounds. EXTREMITIES: He is noted to move all extremities. He does have some tenderness on his right upper shoulder and right upper quadrant, but I believe this is secondary to his seizure this morning. NEUROLOGIC: Patient is awake, alert, oriented, with a normal Evelin Coma Scale. LABORATORY: X-ray shoulder is negative. NO fracture. Positive degenerative changes. WBCs elevated at 14, but I expect this is more reactionary. PLAN: We will admit patient to the hospital. We will increase his Vimpat. We will continue to follow. Further orders as needed. cc: Jesus Pollard MD
[2018-12-22] MEDS: VIMPAT PO SCH (21:39)
[2018-12-23] MEDS: TYLENOL PO PRN ×2 (01:28→09:07)
[2018-12-23 05:29] VITALS: BP 143/59
[2018-12-23 05:34] LABS: BASO# 0.02 X1000 (0.0-0.2); BASO% 0.2 % (0.0-0.8); EOS% 1.2 % (0.0-10.0); HEMATOCRIT 39.6 % (42.0-52.0); HEMOGLOBIN 12.5 g/dL (14.0-18.0); LYMPH# 0.98 X1000 (1.2-3.4); LYMPH% 12.1 % (20.5-51.1); MCHC 31.6 g/dL (33-37); MCV 85.5 FL (81-99); MONO# 1.14 X1000 (0.11-0.59); MONO% 14.1 % (1.7-9.3); MPV 9.8 FL (7.4-10.4); NEUT# 5.86 X1000 (1.4-6.5); NEUT% 72.4 % (42.2-75.2); PLT 201 X1000 (130-400); RBC 4.63 XMIL (4.7-6.1)
[2018-12-23 06:23] LABS: AGAP 10; ALBUMIN 3.8 g/dL (3.5-5.0); ALKALINE PHOSPHATASE 70 U/L (32-122); BUN 17 mg/dL (8-22); CALCIUM 8.6 mg/dL (8.8-10.2); CHLORIDE 105 mmol/L (98-107); COSMO 277; CREATININE 0.9 mg/dL (0.7-1.2); ESTIMATED GFR > 60; GLUCOSE 102 mg/dL (70-104); GOT 14 U/L (10-34); GPT 10 U/L (10-44); SODIUM 138 mmol/L (136-145); TCO2 23 mmol/L (25-35)
[2018-12-23] MEDS: VIMPAT PO SCH (09:07)
--- NOTE | 2018-12-23 20:34 | DISCHARGE SUMMARY ---
ADMISSION DATE: 12/22/2018 DISCHARGE DATE: 12/23/2018 DISCHARGE DIAGNOSIS: 1. Chronic seizure disorder, with 3 seizures yesterday morning. 2. Hypertension. 3. High cholesterol. CONSULTATIONS: None. PROCEDURES: None. BRIEF HOSPITAL COURSE: The patient is an 88-year-old male who presented to the hospital after having had a seizure at home and had 2 more seizures in the ER. Thankfully his workup was negative. He had no further seizures while in the hospital. He had already called Dr. Lowe, his neurologist, and was told to increase his Vimpat to 200 twice daily. His daughter had already picked up the prescription, but he had not had time to start taking it yet. We admitted the patient to the hospital. We placed him in observation. We did start his Vimpat 200 twice daily. Thankfully, he had an uneventful hospital course and was discharged home. DISPOSITION: The patient will be discharged home. There will be no changes on his home medications, with the exception of Vimpat will be increased from 150 twice daily to 200 twice daily. He will follow up outpatient with his primary care as well as with Neurology. cc: Jesus Pollard MD
--- NOTE | 2018-12-25 09:15 | EKG Report ---
Test Performed on : 12/22/2018 2:50:58 PM Test Reason : ER Blood Pressure : / mmHG Vent. Rate : 071 BPM Atrial Rate : 071 BPM P-R Int : 288 ms QRS Dur : 186 ms QT Int : 482 ms P-R-T Axes : 048 259 091 degrees QTc Int : 523 ms Atrial-sensed ventricular-paced rhythm with prolonged AV conduction Abnormal ECG When compared with ECG of 01-JAN-2018 07:36, Vent. rate has increased BY 10 BPM Unconfirmed Result
== END 2018-12-23 11:28 | disposition home or self-care (01) | DRG 101 ==
LOC: P.MEDSURG 11:20 → P.ED 11:20 → OBSVTOIN 22:59
PROVIDERS: ATTEND Family Medicine
CPT/HCPCS: 72125; 72220; 73030; 80053; 80299; 82542; 85025; 93005; A9270